=== PATIENT | female | born 1965 | race Caucasian/White ===

== ENCOUNTER → 2016-07-04 | Outpatient (CLI) | payer MEDICARE, OTHER ==
[2015-06-25 14:24] VITALS: BP 90/60
[~2016-07-04] MED LIST: ALBU0.63 IH; ALPR0.5T PO; CONTRAST GIVEN MC PRN; CYCL10TA2 PO; DESV100T PO; DICL100G7 TP; ESTR1TAB15 PO; FLUT1DIS3 IH; HYDR-210 PO; IOHEXOL 300 MG/ML 100ML VIAL. IV ONE; IOHEXOL 300 MG/ML 75 ML VIAL IV ONE; IPRA14.7 IH; METO25TA4 PO; NAPR500T3 PO; ROFL500T PO
--- NOTE | 2016-07-04 15:51 | RAD ---
Exam performed: CT chest with contrast. History: Restaging lung cancer. History of COPD Date of service: 06/24/16. Comparison: CT chest with contrast from 04/24/15. Technique: Contiguous helical acquisitions are obtained through the chest during intravenous administration of 75 cc of Omnipaque 300. Sagittal and coronal reformatted images are obtained and reviewed. Findings: Structures at the thoracic inlet including both lobes of the thyroid gland are normal. The neck and intrathoracic great vessels appear normal in course and caliber. No dominant mediastinal or hilar adenopathy seen. There is mild atheromatous calcification of the coronary artery. Heart size is within limits of normal without pericardial effusion. Interrogation of lungs demonstrates a linear area of scarring in the right lower lobe. There are surgical clips in the right hilum. No focal nodules or masses are seen. No pleural effusion or pneumothorax. Limited evaluation of the upper abdominal structures is essentially unremarkable. Interrogation of bone windows demonstrates no evidence of bony metastasis. Mild spondylotic changes Impression: 1. Linear area of scarring in the right lung base. No pulmonary masses or nodules noted. 2. No evidence of recurrent mass or metastasis seen. PQRS Compliance Statement: One or more of the following individualized dose reduction techniques were utilized for this examination: 1. Automated exposure control 2. Adjustment of the mA and/or kV according to patient size 3. Use of iterative reconstruction technique.
== END | disposition home or self-care (01) ==
LOC: CT 15:12
PROVIDERS: ATTEND Internal Medicine Hematology & Oncology
DX: C34.91 Malignant neoplasm of unspecified part of right bronchus or lung (principal); J44.9 Chronic obstructive pulmonary disease, unspecified; I10 Essential (primary) hypertension; F17.200 Nicotine dependence, unspecified, uncomplicated
CPT/HCPCS: 71260; Q9967

== ENCOUNTER → 2016-11-15 | Outpatient (CLI) | payer MEDICARE ==
[2015-06-25 14:24] VITALS: BP 90/60
[~2016-11-15] MED LIST changes: -CONTRAST GIVEN MC PRN; +DICL100G18 TP; -DICL100G7 TP; +DOXE3TAB3 PO; +ESOM40CA PO; +IOHEXOL 180 MG/ML 10 ML VIAL. ONE; -IOHEXOL 300 MG/ML 100ML VIAL. IV ONE; -IOHEXOL 300 MG/ML 75 ML VIAL IV ONE; -ROFL500T PO; +ROFL500T7 PO; +SIMV40TA3 PO; +SULF-143 PO; +TIOT18CA IH; +TIZA4TAB PO; +methylPREDNISolone ACETATE 40 MG/ML VIAL. ONE; +methylPREDNISolone ACETATE 80 MG/ML VIAL. ONE
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
== END | disposition home or self-care (01) ==
LOC: PNCL 12:58
PROVIDERS: ATTEND Anesthesiology
DX: M48.06 Spinal stenosis, lumbar region (principal); M54.10 Radiculopathy, site unspecified; M96.1 Postlaminectomy syndrome, not elsewhere classified; M19.90 Unspecified osteoarthritis, unspecified site; I10 Essential (primary) hypertension; K21.9 Gastro-esophageal reflux disease without esophagitis; F17.200 Nicotine dependence, unspecified, uncomplicated; Z82.49 Family history of ischemic heart disease and other diseases of the circulatory system; Z85.118 Personal history of other malignant neoplasm of bronchus and lung; Z88.0 Allergy status to penicillin; Z72.89 Other problems related to lifestyle
CPT/HCPCS: 62323; J1030; J1040

== ENCOUNTER 2017-06-01 04:45 | Emergency (ER) | payer MEDICARE ==
[2017-06-01] MEDS: KETOROLAC 60 MG/2 ML INJ. IM (05:43)
[2017-06-01] MEDS ORDERED: KETOROLAC 30 MG/ML INJ. IM (05:45)
== END 2017-06-01 06:40 | disposition home or self-care (01) ==
LOC: ER 04:45
DX: S39.012A Strain of muscle, fascia and tendon of lower back, initial encounter (principal); F41.9 Anxiety disorder, unspecified; J44.9 Chronic obstructive pulmonary disease, unspecified; F32.9 Major depressive disorder, single episode, unspecified; K21.9 Gastro-esophageal reflux disease without esophagitis; E78.00 Pure hypercholesterolemia, unspecified; I10 Essential (primary) hypertension; G43.909 Migraine, unspecified, not intractable, without status migrainosus; Z90.2 Acquired absence of lung [part of]; Z88.0 Allergy status to penicillin; X58.XXXA Exposure to other specified factors, initial encounter; Y93.89 Activity, other specified; Y92.89 Other specified places as the place of occurrence of the external cause; Y99.8 Other external cause status
CPT/HCPCS: 96372; 99283-25; J1885

== ENCOUNTER 2017-09-02 01:49 | Emergency (ER) | payer MEDICARE ==
[2017-09-02] MEDS: METOCLOPRAMIDE HCL 10 MG/2 ML VIAL. IV (03:24)
[2017-09-02] MEDS: IV NORMAL SALINE 1000ML BAG 1,000 ML IV (03:24)
[2017-09-02] MEDS: diphenhydrAMINE 50 MG/ML VIAL IVP (03:24)
== END 2017-09-02 04:18 | disposition home or self-care (01) ==
LOC: ER 01:49
DX: G43.019 Migraine without aura, intractable, without status migrainosus (principal); E78.00 Pure hypercholesterolemia, unspecified; G89.29 Other chronic pain; I10 Essential (primary) hypertension; J44.9 Chronic obstructive pulmonary disease, unspecified; K21.9 Gastro-esophageal reflux disease without esophagitis; Z95.5 Presence of coronary angioplasty implant and graft; I25.2 Old myocardial infarction; F17.210 Nicotine dependence, cigarettes, uncomplicated; Z88.0 Allergy status to penicillin
CPT/HCPCS: 70450; 96361; 96374; 96375; 99284-25; J1200; J2765; J7030

== ENCOUNTER → 2018-01-11 | Outpatient (CLI) | payer OTHER | END | disposition home or self-care (01) | LOC: PNCL 09:21 | DX: M54.16 Radiculopathy, lumbar region (principal); M48.061 Spinal stenosis, lumbar region without neurogenic claudication; I10 Essential (primary) hypertension; E78.00 Pure hypercholesterolemia, unspecified; K21.9 Gastro-esophageal reflux disease without esophagitis; J44.9 Chronic obstructive pulmonary disease, unspecified; G43.909 Migraine, unspecified, not intractable, without status migrainosus; I25.2 Old myocardial infarction; Z87.891 Personal history of nicotine dependence; Z85.118 Personal history of other malignant neoplasm of bronchus and lung; Z82.49 Family history of ischemic heart disease and other diseases of the circulatory system | CPT/HCPCS: G0463 ==

== ENCOUNTER → 2018-02-19 | Outpatient (CLI) | payer OTHER ==
[2017-09-02 02:00] VITALS: BP 131/78
[~2018-02-19] MED LIST changes: +LIDOCAINE 2% PF 2ML VIAL. ONE; +NAPR-514 PO; -NAPR500T3 PO; +ONDA4TAB10 PO
--- NOTE | 2018-02-19 11:05 | PAIN ---
DATE OF SERVICE: 02/19/2018 PROGRESS NOTE FOR PAIN CLINIC DIAGNOSES: Lumbar radiculopathy with lumbar spinal stenosis and post-lumbar laminectomy syndrome. HISTORY OF PRESENT ILLNESS: The patient is a 52-year-old female who returns for followup status post previous caudal epidural steroid injection. She was waiting for preauthorization from her insurance provider for the next injection. We obtained that now and the patient would like to proceed. The patient reports still significant pain in the low back and bilateral lower extremities, seems to be right equal to left at this time, sometimes more on the right side but right now, equal. The patient reports it is radiating pain in the low back, bilateral posterior gluteus, posterior thighs, posterior calf, aching, sharp, shooting, cramping, stabbing, becoming more constant, radiating and severe. The patient reports it is a 9 on a scale of 10 at its worst, 7 on average and 7 at its least. The patient reports no loss of motor function but significant fatigability of the lower extremities as it awakens her from sleep at night and she does not sleep very well, worse with walking, getting up and down, climbing stairs, changing positions. The patient reports no bowel or bladder incontinence and no new motor or sensory deficits. PHYSICAL EXAMINATION: VITAL SIGNS: The patient's blood pressure is 102/66, pulse 59, respirations 18, temperature 97.9 degrees Fahrenheit, height is 5 feet 4 inches and weight is 142 pounds. GENERAL: The patient is awake, alert, oriented, appropriate and very pleasant demeanor. HEENT: Head shows normocephalic and atraumatic. Extraocular movements are intact and symmetrical. Oral cavity shows mucous membranes moist and pink. Dentition is intact. NECK: Shows anterior throat supple without palpable lymphadenopathy noted. Swallow reflex symmetrical. CHEST: Shows normal with inspection. Breath sounds clear to auscultation bilaterally. HEART: Shows S1 and S2 clear. No murmurs auscultated. ABDOMEN: Soft, nontender and nondistended. No palpable organomegaly is noted. No rebound or guarding demonstrated. BACK: Shows spine grossly in the midline. Normal appearing thoracic kyphosis and lumbar lordotic curve is slightly flattened. Lumbar well-healed surgical scarring is noted. Lumbar paraspinous musculature shows symmetrical, with palpation shows some moderate tenderness bilaterally, but only diffusely in the lumbar distribution bilaterally. The patient shows good rotational motion of the lumbar spine, both laterally as well as extension and flexion without significant pain. No tenderness over the sacrum or sacroiliac regions or the spinous processes. EXTREMITIES: Lower extremities show deep tendon reflexes 1+ in the patellar and tendo-calcaneus tendons. Motor exam is approximately 4 on a scale of 5, but equal and symmetrical bilaterally. Peripheral pulses are 1+ posterior tibial. No peripheral edema is noted. Options were discussed with the patient. The patient's old chart was reviewed as well as her current medication regimen updated. Current review of systems updated today as well. We will proceed with a caudal approach epidural steroid injection today with fluoroscopic guidance. Risks were again discussed including, but not limited to bleeding, infection, possibility of epidural hematoma and subsequent neurological compromise, dural puncture, headaches, spinal cord and/or nerve damage, side effects of steroid medication and poor results regarding pain control. The patient understands and wished to proceed. The patient will return to the clinic in approximately 2 weeks for followup, was counseled as to return appointment, activity level and side effects to be aware of. DIAGNOSES: Lumbar radiculopathy with lumbar spinal stenosis and post-lumbar laminectomy syndrome. PROCEDURE: Lumbar epidural steroid injection, caudal approach using C-arm fluoroscopic guidance under sterile prep and drape using local anesthetic. MEDICATION INJECTED: A total of 120 mg Depo-Medrol plus 10 mL of preservative-free normal saline and 2 mL of injection of Isovue for contrast. CONDITION AT DISCHARGE: Stable. The patient tolerated the procedure well and had no complications. KIKE JOHNSON MD DR: MAURY/juni JOB#: [id number] / [id number]
== END | disposition home or self-care (01) ==
LOC: PNCL 09:55
PROVIDERS: ATTEND Anesthesiology
DX: M48.061 Spinal stenosis, lumbar region without neurogenic claudication (principal); M96.1 Postlaminectomy syndrome, not elsewhere classified; M54.16 Radiculopathy, lumbar region; Z88.0 Allergy status to penicillin
CPT/HCPCS: 62323; J1030; J1040; J2001; Q9965

== ENCOUNTER 2018-03-13 23:25 | Emergency (ER) | payer OTHER ==
[~2018-03-13] VITALS: Ht 162.6 cm; Wt 65.8 kg
[~2018-03-13 23:25] MED LIST changes: -IOHEXOL 180 MG/ML 10 ML VIAL. ONE; -LIDOCAINE 2% PF 2ML VIAL. ONE; -methylPREDNISolone ACETATE 40 MG/ML VIAL. ONE; -methylPREDNISolone ACETATE 80 MG/ML VIAL. ONE
[2018-03-13 23:30] VITALS: BP 123/64
--- NOTE | 2018-03-13 23:41 | PHYS DOC ---
Past Medical History Past Medical History: Anxiety, Cancer, COPD, Depression, GERD, High Cholesterol , Hypertension, AL, Migraines, Other Additional Past Medical Histor: NON-SMALL CELL LUNG CANCER (DX 2008), WITH CHEMO/ RADIATION, Past Surgical History: , Tubal ligation, Other Additional Past Surgical Histo: RT UPLOBECTOMY W/ LYMPH NODE REMOVAL,NECK SURGERY,LSPINE SX, CARDIAC STENT Alcohol Use: None Drug Use: None Adult General Chief Complaint Chief Complaint: ANIMAL BITE HPI HPI Patient is a 52 year old female with history of anxiety, hypertension, COPD, who presents with dog bite to the right hand, patient got bit by her own dogs. Dogs are up-to-date with their shots. Patient is right-handed. Review of Systems Review of Systems Constitutional: Denies fever or chills [] Musculoskeletal: Denies back pain or joint pain [] Integument: Dog bite to the right hand Neurologic: Denies headache, focal weakness or sensory changes [] All other systems were reviewed and found to be within normal limits, except as documented in this note. Current Medications Current Medications Current Medications Medications (Trade) Dose Ordered Sig/Roly Start Time Stop Time Status Last Admin Dose Admin Acetaminophen/ Hydrocodone Bitart (Lortab 5/325) 1 tab 1X ONCE 03/13/18 23:45 03/13/18 23:47 DC Neomycin/ Polymyxin/ Bacitracin (Triple Antibiotic Ointment) 1 pkt 1X ONCE 03/13/18 23:45 03/13/18 23:46 DC 03/13/18 23:47 1 PKT Allergies Allergies Allergies Coded Allergies Type Severity Reaction Last Updated Verified Penicillins Allergy Mild Rash 05/15/13 No Physical Exam Physical Exam Constitutional: Well developed, well nourished, no acute distress, non-toxic appearance. [] Skin: Palmar the right hand distal metacarpal with a laceration approximately 2 cm long. There is no obvious tendon involvement. Patient able to flex and extend all her fingers in the right hand. Adequate radial, medial, ulnar sensation to the right hand. +2 right radial pulse. Cap refill less than 2 seconds the right fingers. Bruising also noted to the left forearm consistent with dog bite. Neurovascular exam is intact to the left upper extremity. Back: No tenderness, no CVA tenderness. [] Extremities: No tenderness, no cyanosis, no clubbing, ROM intact, no edema. [] Neurologic: Alert and oriented X 3, normal motor function, normal sensory function, no focal deficits noted. [] Psychologic: Affect normal, judgement normal, mood normal. [] Current Patient Data Vital Signs Vital Signs Date Time Temp Pulse Resp B/P (MAP) Pulse Ox O2 Delivery O2 Flow Rate FiO2 03/13/18 23:30 98.9 73 20 123/64 (83) 98 Room Air 98.9 EKG EKG [] Radiology/Procedures Radiology/Procedures [] Course & Med Decision Making Course & Med Decision Making Pertinent Labs and Imaging studies reviewed. (See chart for details) This is a 52-year-old female patient presenting to the ED today with dog bite to the right hand. Patient is up-to-date with her tetanus. Patient is up-to- date with her tetanus. Right hand x-rays interpreted by Dr. Gonzalez were noted for arthritis otherwise no acute findings. Right hand was cleaned thoroughly in the emergency room. Neosporin applied to the area. Patient discharged on Augmentin. Provided wound care instructions and return precautions. Dragon Disclaimer Dragon Disclaimer This electronic medical record was generated, in whole or in part, using a voice recognition dictation system. Departure Departure Impression: Primary Impression: Dog bite of upper extremity Additional Impression: Dog bite of left forearm Disposition: 01 HOME, SELF-CARE Condition: STABLE Referrals: HAO CLARKE (PCP) follow up with your doctor in one week Patient Instructions: Animal Bite, [id number] Additional Instructions: You were seen for a dog bites. Keep the areas clean and dry. You can shower and wash your hands and the affected areas with soap and water. Take the prescribed antibiotics until completed. Consider taking Zyrtec every day to prevent some of the allergic reactions/rash from Augmentin. Ensure you complete your antibiotics. Take the prescribed medications as needed for pain. Come back to the ED at any point symptoms worsen. Scripts Hydrocodone/Apap 5-325 (NORCO 5-325 TABLET) 1 Each Tablet 1 TAB PO Q6-8HRS PRN for PAIN, #14 TAB Prov: MUTUNGA,CYNTHIA TANDEM OPERATOR 03/14/18 Amoxicillin/Potassium Clav (AUGMENTIN 875-125 TABLET) 1 Each Tablet 1 TAB PO BID, #20 TAB Prov: MUTUNGA,CYNTHIA TANDEM OPERATOR 03/14/18 Problem Qualifiers Primary Impression: Dog bite of upper extremity Encounter type: initial encounter Laterality: right Qualified Codes: S41.151A - Open bite of right upper arm, initial encounter; W54.0XXA - Bitten by dog, initial encounter Additional Impression: Dog bite of left forearm Encounter type: initial encounter Qualified Codes: S51.852A - Open bite of left forearm, initial encounter; W54.0XXA - Bitten by dog, initial encounter CYNTHIA NICOLE APRN Mar 13, 2018 23:41
[2018-03-13] MEDS ORDERED: NEOMY/BACITR/POLYMYXIN OINT PACKET. TP ONE (23:45)
[2018-03-13] MEDS ORDERED: HYDROcodone/APAP 5/325MG 1 TAB TABLET PO ONE (23:45)
[2018-03-14] MEDS ORDERED: AMOX1TAB61 PO (00:10)
[2018-03-14] MEDS ORDERED: HYDR-971 PO (00:10)
--- NOTE | 2018-03-14 03:31 | RAD ---
Right hand 3 views: Reason for examination: Dog bite to hand. No fracture or dislocation is seen. The bone density is normal. No abnormal periosteal reaction is seen. There are degenerative changes at the first carpometacarpal joint. Remaining joint spaces are fairly well-maintained. IMPRESSION: Degenerative changes at the first carpometacarpal joint. No acute bony abnormality seen in the right hand. Electronically signed by: Lyla Patiño MD (03/14/2018 3:28 AM) [facility] [place]
== END 2018-03-14 00:25 | disposition home or self-care (01) ==
LOC: ER 23:25
DX: S41.151A Open bite of right upper arm, initial encounter (principal); S51.852A Open bite of left forearm, initial encounter; J44.9 Chronic obstructive pulmonary disease, unspecified; K21.9 Gastro-esophageal reflux disease without esophagitis; E78.00 Pure hypercholesterolemia, unspecified; I10 Essential (primary) hypertension; G43.909 Migraine, unspecified, not intractable, without status migrainosus; I25.2 Old myocardial infarction; Z95.5 Presence of coronary angioplasty implant and graft; Z88.0 Allergy status to penicillin; W54.0XXA Bitten by dog, initial encounter; Y93.89 Activity, other specified; Y92.89 Other specified places as the place of occurrence of the external cause; Y99.8 Other external cause status
CPT/HCPCS: 73130; 99284

== ENCOUNTER → 2018-09-04 | Outpatient (CLI) | payer OTHER ==
[~2018-09-04] MED LIST changes: +AMOX1TAB61 PO; +HYDR-3164 PO
--- NOTE | 2018-09-04 15:52 | RAD ---
EXAM: Lumbar spine, flexion and extension. HISTORY: Pain. COMPARISON: None. FINDINGS: Total, lateral, flexion and extension and coned sacral views of the lumbar spine are obtained. There is grade 1 anterolisthesis of L4 on L5, measuring 7 mm in neutral supine position. This does not significantly change between flexion and extension. There is minimal levocurvature centered at L4. There is degenerative endplate remodeling predominantly at L4-L5 and facet arthropathy predominantly at L4-L5 and L5-S1. IMPRESSION: 1. Grade 1 anterolisthesis of L4 and L5. There is no significant change in listhesis between flexion and extension. 2.. Multilevel degenerative change, primarily at L4-L5. Electronically signed by: Nora Mendoza MD (09/04/2018 3:48 PM) [facility]
== END | disposition home or self-care (01) ==
LOC: RAD 14:42
PROVIDERS: ATTEND Neurological Surgery
DX: M43.16 Spondylolisthesis, lumbar region (principal); M47.816 Spondylosis without myelopathy or radiculopathy, lumbar region; M12.88 Other specific arthropathies, not elsewhere classified, other specified site
CPT/HCPCS: 72110

== ENCOUNTER → 2018-11-27 | Outpatient (CLI) | payer OTHER ==
[~2018-11-27] MED LIST changes: +ASPI81TA50 PO; +AZIT250T PO; +DOCU-109 PO; +HYDR-2765 PO; +MELO7.5T29 PO; +METH-38 PO; +METO25TA2 PO; +NORT25CA PO
--- NOTE | 2018-11-27 11:37 | EKG ---
[facility] [address] [place] [address] Test Date: 2018-11-27 Test Time: 11:39:20 Pat Name: MAYA AZAR Department: Room: Gender: F Chief Librarian Branch: : 1965 Requested By: KAZ MONTERO Order Number: [id number] Reading MD: Diego Cisneros MD Measurements Intervals [place] Rate: 52 P: 55 WV: 130 QRS: 75 QRSD: 88 T: 71 QT: 462 QTc: 432 Interpretive Statements SINUS RHYTHM Electronically Signed On 11-29-2018 9:56:46 CDT by Diego Cisneros MD
== END | disposition home or self-care (01) ==
LOC: SURGPAT 10:16
PROVIDERS: ATTEND Neurological Surgery
DX: Z01.818 Encounter for other preprocedural examination (principal); M48.062 Spinal stenosis, lumbar region with neurogenic claudication; M43.16 Spondylolisthesis, lumbar region; M71.30 Other bursal cyst, unspecified site
CPT/HCPCS: 36415; 87641; 93005

== ENCOUNTER → 2018-11-27 | Outpatient (CLI) | payer OTHER ==
[~2018-11-27] MED LIST changes: -AZIT250T PO; -DOCU-109 PO; -HYDR-2765 PO; -METH-38 PO
--- NOTE | 2018-11-27 11:48 | CARD ---
MR#: [id number] Date of Study: 11/27/2018 Ordering Physician: JOSE RAFAEL ROBERTS, Referring Physician: JOSE RAFAEL ROBERTS, Tech: Latasha Martines PAVAN APPROVED REPORT EXAM: Two-dimensional and M-mode echocardiogram with Doppler and color Doppler. Other Information Quality : Good INDICATION Cardiac Disease: CAD RISK FACTORS Smoking 2D DIMENSIONS RVDd2.2 (2.9-3.5cm)Left Atrium(2D)2.9 (1.6-4.0cm) IVSd0.6 (0.7-1.1cm)Aortic Root(2D)2.4 (2.0-3.7cm) LVDd5.5 (3.9-5.9cm)LVOT Diameter1.9 (1.8-2.4cm) PWd0.6 (0.7-1.1cm)LVDs3.8 (2.5-4.0cm) FS (%) 29.9 %SV82.4 ml LVEF(%)56.5 (>50%) Aortic Valve AoV Peak Virgilio.137.5cm/sAoV VTI33.7cm AO Peak GR.7.6mmHgLVOT Peak Virgilio.106.1cm/s LVOT VTI 26.69cmAO Mean GR.5mmHg AYO (VMAX)2.24xs9SLY (VTI)2.24cm2 Mitral Valve MV E Lhkncndp30.8cm/sMV DECEL LQJL477uk MV A Qxwytyga88.8cm/sMV UMM87bi E/A Ratio1.4MVA (PHT)4.54cm2 TDI E/Lateral E'26.9E/Medial E'12.1 Tricuspid Valve TR P. Cntikacp205pj/sRAP NJOYWCKW6zaGd TR Peak Gr.41suHeUAHI59sgQw Pulmonary Vein S1 Phbbozgn46.8cm/sD2 Vspkvavh29.7cm/s LEFT VENTRICLE The left ventricle is normal size. There is normal left ventricular wall thickness. The left ventricu lar systolic function is normal and the ejection fraction is within normal range. The Ejection Fracti on is 55-60%. There is normal LV segmental wall motion. Transmitral Doppler flow pattern is Grade II- pseudonormal filling dynamics. RIGHT VENTRICLE The right ventricle is normal size. The right ventricular systolic function is normal. ATRIA The left atrium size is normal. The right atrium size is normal. The interatrial septum is intact wit h no evidence for an atrial septal defect or patent foramen ovale as noted on 2-D or Doppler imaging. AORTIC VALVE The aortic valve is calcified but opens well. Doppler and Color Flow revealed no significant aortic r egurgitation. There is no significant aortic valvular stenosis. MITRAL VALVE The mitral valve is normal in structure and function. There is no evidence of mitral valve prolapse. There is no mitral valve stenosis. Doppler and Color-flow revealed trace mitral regurgitation. TRICUSPID VALVE The tricuspid valve is normal in structure and function. Doppler and Color Flow revealed trace tricus pid regurgitation. The PA pressure was estimated at 23 mmHg. There is no tricuspid valve stenosis. PULMONIC VALVE Doppler and Color Flow revealed mild pulmonic valvular regurgitation. There is no pulmonic valvular s tenosis. GREAT VESSELS The aortic root is normal in size. The ascending aorta is normal in size. The IVC is normal in size a nd collapses >50% with inspiration. PERICARDIAL EFFUSION There is no evidence of significant pericardial effusion. Critical Notification Critical Value: No <Conclusion> The left ventricular systolic function is normal and the ejection fraction is within normal range. Th e Ejection Fraction is 55-60%. There is normal LV segmental wall motion. Signed by : Jose Rafael Roberts, Electronically Approved : 11/27/2018 11:47:35
== END | disposition home or self-care (01) ==
LOC: ECHO 10:10
PROVIDERS: ATTEND Internal Medicine Cardiovascular Disease
DX: I08.8 Other rheumatic multiple valve diseases (principal); I25.10 Atherosclerotic heart disease of native coronary artery without angina pectoris
CPT/HCPCS: 93306

== ENCOUNTER → 2018-11-29 | Outpatient (CLI) | payer OTHER ==
--- NOTE | 2018-11-30 18:54 | RAD ---
MR#: [id number] Date of Study: 11/29/2018 Ordering Physician: JOSE RAFAEL ROBERTS, Referring Physician: JOSE RAFAEL ROBERTS, Tech: STEVO Chapman, RDMS, RTR APPROVED REPORT Patient Location: OUT-PATIENT Laterality:Bilateral Indications PAD Risk Factors Hypertension: PAD Smoking Doppler Spectral Velocity Analysis Right Left pCCA 120/32 cm/spCCA 94/20 cm/s mCCA 66/19 cm/smCCA 133/25 cm/s dCCA 102/28 cm/sdCCA 120/25 cm/s ECA 147/ cm/sECA 78/ cm/s pICA 81/30 cm/spICA 90/35 cm/s Lester 124/23 cm/smICA 64/27 cm/s dICA 94/40 cm/sdICA 81/32 cm/s Vert. Vert. 76/ cm/s Subcl. 141/ cm/sSubcl. 133/ cm/s ICA/CCA 1.03ICA/CCA 0.96 Real-Time B-Mode Imaging AreaFindingsRightLeft VertebralIntermittentAntegrade SubclavianBiphasicTriphasic Findings Grayscale images of the bilateral carotid vessels reveals mild diffuse plaque On the right there are normal spectral waveforms and velocities overall less than 50% in the internal carotid vessels. The right vertebral artery flow is to and fro suggestive of possible subclavian ellen al. On the left spectral waveforms are grossly within normal limits. Velocities are within normal limits and the internal carotid arteries. The left vertebral velocities are antegrade and within normal limi ts. Normal ICA to CCA ratios. Bilateral subclavian velocities are within normal limits. Critical Notification Critical Value: No <Conclusion> 1. No significant internal carotid artery disease bilaterally 2. Partially reversed flow in the right vertebral artery suggestive of subclavian steal. Signed by : Jose Rafael Roberts, Electronically Approved : 11/30/2018 18:53:20
--- NOTE | 2018-11-30 18:59 | RAD ---
MR#: [id number] Date of Study: 11/29/2018 Ordering Physician: JOSE RAFAEL ROBERTS, Referring Physician: JOSE RAFAEL ROBERTS, Tech: STEVO Chapman, RDMS, RTR APPROVED REPORT Patient Location: OUT-PATIENT Indications Rest Pain: PAD Risk Factors Hypertension Smoking VELOCITY AND DOPPLER WAVEFORM ANALYSIS RIGHT cm/secWaveformSeverity LEFT cm/secWaveform Severity pCFA 136.0TriphasicpCFA 149.1Triphasic Prof Fem Art. 113.8Prof Fem Art. 87.9 Fem Art Prox. 143.0TriphasicFem Art Prox. 146.9Triphasic Fem Art Mid. 113.6TriphasicFem Art Mid. 116.8Triphasic Fem Art Dist. 109.4TriphasicFem Art Dist. 85.1Biphasic Pop Art(Fossa) 55.5TriphasicPop Art(AK) 76.6Biphasic BICYCLE COURIER Dist. 77.5TriphasicPTA Dist. 63.0Biphasic Per Art Dist.29.3BiphasicPer Art Dist.56.0Biphasic RICARDO Dist. 58.8BiphasicATA Dist. 70.1Biphasic DPA 32BiphasicDPA 27Biphasic Findings Grayscale images of the right lower extremity arterial vessels reveals mild to moderate diffuse plaqu e. Spectral waveforms are mostly biphasic without any focal obstruction above the knee. The peroneal art ratna appears to be subtotally occluded. No high-grade stenosis is identified in the anterior tibial or posterior tibial vessels. Grayscale images of the left lower extremity arterial vessels reveals mild to moderate diffuse plaque . Spectral waveforms are mostly biphasic on the left side without any focal above-knee obstruction. Bel ow the knee spectral waveforms are again biphasic without any focal obstruction. There is likely dist al diffuse small vessel disease involving the dorsalis pedis arteries bilaterally. Critical Notification Critical Value: No <Conclusion> 1. No significant focal high-grade obstruction noted, cannot rule out diffuse severe disease at the l evel of the ankle involving the dorsalis pedis vessels. Signed by : Jose Rafael Roberts, Electronically Approved : 11/30/2018 18:58:54
== END | disposition home or self-care (01) ==
LOC: US 14:25
PROVIDERS: ATTEND Internal Medicine Cardiovascular Disease
DX: I70.293 Other atherosclerosis of native arteries of extremities, bilateral legs (principal); I10 Essential (primary) hypertension; F17.200 Nicotine dependence, unspecified, uncomplicated
CPT/HCPCS: 93880; 93923

== ENCOUNTER → 2019-01-02 | Outpatient (CLI) | payer OTHER ==
[2018-12-05 11:18] VITALS: BP 107/56
[~2019-01-02] MED LIST changes: +AZIT250T PO; +DOCU-109 PO; +HYDR-2765 PO; +IOHEXOL 350 MG/ML 100 ML VIAL. IV ONE; +METH-38 PO; -TIZA4TAB PO; +TIZA4TAB2 PO
--- NOTE | 2019-01-02 15:52 | RAD ---
NECK CTA WITH AND WITHOUT CONTRAST AND 3-D RECONSTRUCTION: Clinical indications: Subclavian steal syndrome. History of peripheral arterial disease and hypertension and smoking history. Technique: An appropriate noncontrast CT localizer was identified in the neck and used as the region of interest during contrast injection. Following IV infusion of 75 cc of Omnipaque 350, helical CT scanning of the neck through the base of the skull was performed. Axial and coronal and sagittal 2-D MIP reconstructions were generated and reviewed on a computer monitor. Using a MIP algorithm, a 3-D reconstructed angiogram was generated and reviewed on a computer monitor. PQRS compliance Statement One or more of the following individualized dose reduction techniques were utilized for this study: 1. Automated exposure control 2. Adjustment of the mA and/or kV according to patient size 3. Use of iterative reconstruction technique The measurements were performed using the NASCET criteria. Neck CTA Findings: There is calcified and soft plaque formation involving the distal innominate artery which also includes the origin of the right subclavian and right common carotid arteries. This plaque formation more prominently involves the origin of the right subclavian artery which is approximately 66 percent narrowed. The narrowing of the origin of the right common carotid artery is less than 50 percent. Mild calcified plaque is seen involving the proximal left subclavian artery just distal to it's origin from the aortic arch and this is minimal. The left vertebral artery is dominant in size and widely patent. The right vertebral artery is patent as well. There is soft plaque formation involving the proximal left common carotid artery just distal to the origin from the aortic arch. This plaque formation is approximately 40 percent stenotic. There is mild soft plaque formation within the left carotid bulb. This is minimal. Mild soft plaque formation is seen within the right carotid bulb which is minimal. There is a tortuosity and kinking of the proximal right ICA. No soft tissue mass or enlarged cervical lymphadenopathy is seen. IMPRESSION: Most significant finding is the distal innominate artery with soft and calcified plaque formation which extends into the origin of the right common carotid artery and into the origin of the right subclavian artery. There is approximately 66 percent narrowing of the origin of the right subclavian artery. Electronically signed by: Vamshi Austin MD (01/02/2019 3:49 PM) [facility]
== END | disposition home or self-care (01) ==
LOC: CT 11:18
PROVIDERS: ATTEND Internal Medicine Cardiovascular Disease
DX: I65.23 Occlusion and stenosis of bilateral carotid arteries (principal); I10 Essential (primary) hypertension; Z86.79 Personal history of other diseases of the circulatory system; Z87.891 Personal history of nicotine dependence
CPT/HCPCS: 70498; Q9967